=== PATIENT | male | born 1935 | race Caucasian/White ===

== ENCOUNTER 2018-09-10 08:36 | Emergency (ER) | payer OTHER, BC ==
--- NOTE | 2018-09-10 09:13 | EDPHY ---
H & P Stated Complaint: No bowel movement in over a week, denies pain Time Seen by Provider: 09/10/18 09:11 HPI/ROS: HPI: This is an 83-year-old male who presents with Chief Complaint: No bowel movement in over a week, denies pain Location: Abdominal Quality: No bowel movement Duration: 1 week Signs and Symptoms: no fever, no nausea, no vomiting, no hematemesis, no blood in stool, no abdominal bloating, no diarrhea, no back pain, no urinary symptoms , no testicular/groin pain, no indigestion, no chest pain, no shortness of breath, no abdominal pain Timing: Daily Severity: Mild Context: Patient flew on Wednesday from [place] to [place], [place] to visit his daughter. He presents to the emergency room today with complaints of not having a bowel movement in over 7 days. He reports that he has belching and passing gas from below. He denies any nausea, vomiting, abdominal pain, abdominal bloating, abdominal cramping, blood in stool, hematemesis. reports that he drinks minimal water. No prior history of small-bowel obstruction. He took magnesium citrate yesterday without relief of symptoms. Patient would like the "least expensive and invasive workup to get my bowels moving." Modifying Factors: Magnesium citrate-no relief Comment: ROS: A comprehensive 10 system review of systems is otherwise negative aside from elements mentioned in the history of present illness. MEDICAL/SURGICAL/SOCIAL HISTORY: Medical history: Coronary artery disease Surgical history: CABG, cholecystectomy Social history: , retired. Never smoked. Family history noncontributory. CONSTITUTIONAL: Extremely polite and cooperative well-appearing elderly white male, and daughter are at bedside, awake and alert, no obvious distress HEENT: Atraumatic and normocephalic, PERRL, EOMI. Nares patent; no rhinorrhea; no nasal mucosal edema. Tympanic membranes clear. Oropharynx clear, no exudate and moist pink mucosa. Airway patent. No lymphadenopathy. No meningismus. Cardiovascular: Normal S1/S2, regular rate, regular rhythm, without murmur rub or gallop. PULMONARY/CHEST: Symmetrical and nontender. Clear to auscultation bilaterally. Good air movement. No accessory muscle usage. ABDOMEN: Soft, nondistended, nontender, no rebound, no guarding, no peritoneal signs, no masses or organomegaly. No CVAT. Normoactive bowel sounds heard x4 quadrants. EXTREMITIES: 2/2 pulses, strength 5/5, no deformities, no clubbing, no cyanosis or edema. NEUROLOGICAL: no focal neuro deficits. GCS 15. SKIN: Warm and dry, no erythema. no rash. Good capillary refill. Source: Patient, Family Exam Limitations: No limitations - Personal History Current Tetanus/Diphtheria Vaccine: Unsure Current Tetanus Diphtheria and Acellular Pertussis (TDAP): Unsure - Medical/Surgical History Hx Asthma: No Hx Chronic Respiratory Disease: No Hx Diabetes: No Hx Cardiac Disease: Yes Hx Renal Disease: No Hx Cirrhosis: No Hx Alcoholism: No Hx HIV/AIDS: No Hx Splenectomy or Spleen Trauma: No - Social History Smoking Status: Never smoked Constitutional: Initial Vital Signs Temperature (C) 36.8 C 09/10/18 08:39 Heart Rate 42 L 09/10/18 08:39 Respiratory Rate 14 09/10/18 08:39 Blood Pressure 100/69 09/10/18 08:39 O2 Sat (%) 97 09/10/18 08:39 O2 Delivery Mode Room Air Allergies/Adverse Reactions: No Known Allergies Allergy (Unverified 09/10/18 08:39) Medical Decision Making - Diagnostics Imaging Results: Imaging Impressions Abdomen X-Ray 09/10/18 09:03 Impression: 1. No significant constipation or evidence for obstruction. 2. Degenerative changes lumbar spine and hips. ED Course/Re-evaluation: Vital signs reviewed and stable upon arrival. Abdomen is soft and nontender doubt surgical process or need for CT imaging Abdominal x-ray ordered and shows mild constipation but no signs of obstruction. Long discussion with patient, and daughter at bedside who requests the most "minimum workup as possible." IV access, laboratory studies ordered Given 1 L normal saline, IV Zofran 4 mg and GoLYTELY 1000 mL only. No history of kidney disease/arrhythmias. 1106: Laboratory studies reviewed and grossly unremarkable. Creatinine 1.0 and potassium 3.7 1130: asking to be discharged home. abdomen remains soft and nontender. discussed bowel regimen. This patient was seen under the supervision of my secondary supervising physician. I evaluated and cared for this patient independently. Differential Diagnosis: Abdominal pain including but not limited to appendicitis, cholecystitis, gastritis and urinary tract infection. - Data Points Laboratory Results: Laboratory Results 09/10/18 09:50 09/10/18 09:50 09/10/18 09/10/18 09:50 09:50 WBC 5.63 10^3/uL 10^3/uL (3.80-9.50) RBC 4.16 10^6/uL L 10^6/uL (4.40-6.38) Hgb 13.1 g/dL L g/dL (13.7-17.5) Hct 38.7 % L % (40.0-51.0) MCV 93.0 fL fL (81.5-99.8) MCH 31.5 pg pg (27.9-34.1) MCHC 33.9 g/dL g/dL (32.4-36.7) RDW 13.1 % % (11.5-15.2) Plt Count 129 10^3/uL L 10^3/uL (150-400) MPV 10.2 fL fL (8.7-11.7) Neut % (Auto) 73.8 % % (39.3-74.2) Lymph % (Auto) 11.5 % L % (15.0-45.0) Borden % (Auto) 8.7 % % (4.5-13.0) Eos % (Auto) 5.3 % % (0.6-7.6) Baso % (Auto) 0.5 % % (0.3-1.7) Nucleat RBC Rel Count 0.0 % % (0.0-0.2) Absolute Neuts (auto) 4.15 10^3/uL 10^3/uL (1.70-6.50) Absolute Lymphs (auto) 0.65 10^3/uL L 10^3/uL (1.00-3.00) Absolute Monos (auto) 0.49 10^3/uL 10^3/uL (0.30-0.80) Absolute Eos (auto) 0.30 10^3/uL 10^3/uL (0.03-0.40) Absolute Basos (auto) 0.03 10^3/uL 10^3/uL (0.02-0.10) Absolute Nucleated RBC 0.00 10^3/uL 10^3/uL (0-0.01) Immature Gran % 0.2 % % (0.0-1.1) Immature Gran # 0.01 10^3/uL 10^3/uL (0.00-0.10) Sodium 135 mEq/L mEq/L (135-145) Potassium 3.7 mEq/L mEq/L (3.5-5.2) Chloride 104 mEq/L mEq/L (97-110) Carbon Dioxide 21 mEq/l L mEq/l (22-31) Anion Gap 10 mEq/L mEq/L (6-14) BUN 18 mg/dL mg/dL (7-23) Creatinine 1.0 mg/dL mg/dL (0.7-1.3) Estimated GFR > 60 Glucose 142 mg/dL H mg/dL (70-100) Calcium 8.7 mg/dL mg/dL (8.5-10.4) Total Bilirubin 1.0 mg/dL mg/dL (0.1-1.4) AST 33 IU/L IU/L (17-59) ALT 27 IU/L IU/L (21-72) Alkaline Phosphatase 77 IU/L IU/L (38-126) Total Protein 6.3 g/dL g/dL (6.3-8.2) Albumin 3.6 g/dL g/dL (3.5-5.0) Medications Given: Discontinued Medications Sodium Chloride (Ns) 1,000 mls @ 0 mls/hr IV EDNOW ONE; Wide Open PRN Reason: Protocol Stop: 09/10/18 09:40 Last Admin: 09/10/18 10:00 Dose: 1,000 mls Ondansetron HCl (Zofran) 4 mg IVP EDNOW ONE Stop: 09/10/18 09:40 Last Admin: 09/10/18 10:31 Dose: 4 mg Polyethylene Glycol/Electrolytes (Gavilyte - G) 4,000 ml PO ONCE ONE Stop: 09/10/18 09:40 Last Admin: 09/10/18 10:29 Dose: 1,000 ml Departure - Departure Disposition: Home, Routine, Self-Care Clinical Impression: Constipation by delayed colonic transit Condition: Good Instructions: Magnesium Citrate (By mouth), Constipation (ED), Dehydration (ED) Additional Instructions: Consume a minimum of 12 glasses of water or electrolyte fluid replacement drinks that include Gatorade, Powerade, Pedialyte. Eat a clear liquid/soup diet for the next 24 hours and then slowly advance as tolerated. Consume 1000 mL of GoLYTELY over the next 4 hr. You should have started this in the emergency room. If no bowel movement in 24 hr, consume 1 bottle of magnesium citrate over 1 hour. Return to the Emergency Room if symptoms do not resolve in the next 72 hours, you spike a fever > 102 F, or experience intractable abdominal pain/nausea/ vomiting. Referrals: BIBI ROSALES [Other] - As per Instructions
[2018-09-10] MEDS ORDERED: ONDANSETRON 4 MG/2 ML VIAL IVP ONE (09:39)
[2018-09-10] MEDS ORDERED: NS 1,000 ML IV ONE (09:39)
[2018-09-10] MEDS ORDERED: PEG 3350/NA SULF,BICARB,CL/KCL (GAVILYTE-G) 4000 ML BTL PO ONE (09:39)
[2018-09-10 10:15] LABS: PLATELET COUNT 129 10^3/uL (150-400)
[2018-09-10 10:36] VITALS: BP 104/68
== END 2018-09-10 11:09 | disposition home or self-care (01) ==
DX: K59.01 Slow transit constipation (principal); E86.9 Volume depletion, unspecified
CPT/HCPCS: 74019; 96361; 96374; 99284; J2405